=== PATIENT | female | born 1960 | race Caucasian/White ===

== ENCOUNTER 2024-06-04 12:54 | Inpatient (IN) | payer MEDICARE, OTHER ==
[2024-06-04] VITALS (9 sets, daily range): BP systolic 106–161; BP diastolic 70–99
[~2024-06-04] VITALS: Ht 170.2 cm; Wt 64.0 kg
[~2024-06-04 12:54] MED LIST: COLCHICINE0.6 M1 PO; DEPAKOTE250 MG PO; DISULFIRAM250 MG PO; LEVOTHYROXINE75 MC1 PO; MAGNESIUM OXID400 M1 PO; NEURONTIN300 MG PO; NORVASC5 MG PO; PAIN RELIEF650 MG PO; PROTONIX40 M1 PO; SPIRONOLACTONE25 MG PO; TRAZODONE HCL50 MG PO; TRIAMCINOLONE A15 G1 TOP
--- OUTSIDE RECORDS SUMMARY | 2024-06-04 12:55 | XMS ---
PreManage Notification: YAMILETH ENAMORADO Security Ship'S Officer Events No recent Security Events currently on file CRITERIA MET - [facility] - [facility] - 2 Visits in 30 Days CARE PROVIDERS HUSSEIN MERLOS Internal Medicine Current PHONE: Unknown Vikki has no Care Guidelines for this patient. EJesse VISIT COUNT (12 MO.) 4 [facility] [address] [place] [address] TOTAL 6 NOTE: Visits indicate total known visits. ED/UCC VISIT TRACKING (12 MO.) 06/04/2024 12:[address] [facility] TYPE: Emergency COMPLAINT: - ALTERED LOC 05/31/2024 21:21 [facility] [place] TYPE: Emergency COMPLAINT: - CONFUSION DIAGNOSES: - Allergy status to other drugs, medicaments and biological substances - Elevated blood-pressure reading, without diagnosis of hypertension - Essential (primary) hypertension - Hormone replacement therapy - Hypertensive urgency - Other lobsterman (current) drug therapy 05/15/2024 02:38 [place] ([facility]) TYPE: Emergency DIAGNOSES: - Candidiasis, unspecified - Pain in right shoulder - Arm Pain - Fall - Shoulder Pain 03/11/2024 16:50 [facility] [place] ([facility]) TYPE: Emergency DIAGNOSES: - Alcohol use, unspecified, uncomplicated - Contusion of right knee, initial encounter - Gross hematuria - Other nondisplaced fracture of first cervical vertebra, initial encounter for closed fracture - Repeated falls - Weakness - Ankle Injury - Pain 12/08/2023 19:23 [facility] [place] ([facility]) TYPE: Emergency DIAGNOSES: - Hypomagnesemia - Unspecified convulsions - Possible Seizure - Seizure 08/31/2023 12:17 [facility] [place] ([facility]) TYPE: Emergency DIAGNOSES: - Gastrointestinal hemorrhage, unspecified - Generalized Weakness; Vomitting - Weakness INPATIENT VISIT TRACKING (12 MO.) 03/11/2024 16:50 [facility] [place] ([facility]) TYPE: Internal Medicine DIAGNOSES: - Adult failure to thrive - Alcohol abuse, uncomplicated - Alcohol dependence, uncomplicated - Alcohol use, unspecified, uncomplicated - Contusion of right knee, initial encounter - Gross hematuria - Other nondisplaced fracture of first cervical vertebra, initial encounter for closed fracture - Repeated falls - Weakness - Wedge compression fracture of second lumbar vertebra, subsequent encounter for fracture with routine healing 08/31/2023 12:17 [facility] [place] ([facility]) TYPE: Internal Medicine DIAGNOSES: - Acute kidney failure, unspecified - Gastrointestinal hemorrhage, unspecified - Repeated falls [email or web address]
[2024-06-04 13:43] LABS: BASOPHILS 0.9 % (0-2); EOSINOPHILS 2.6 % (0-6); HEMATOCRIT 40.4 % (35.0-50.0); HEMOGLOBIN 13.6 g/dL (12.0-18.0); LYMPHOCYTES 38.5 % (24-44); MCHC 33.7 g/dl (30-36); MCV 91.9 fl (81-99); MONOCYTES 14.3 % (0-12); NEUTROPHILS 43.7 % (39-80); PLATELET COUNT 152 K/uL (140-440); RBC 4.39 M/ul (4.3-5.7); RDW 15.1 (10.5-15.0)
[2024-06-04 13:59] LABS: ALBUMIN 3.1 g/dL (3.4-5.0); ALBUMIN/GLOBULIN RATIO 0.72 (1.1-2.4); ALKALINE PHOSPHATASE 116 U/L (46-116); ALT (SGPT) 11 U/L (14-59); ANION GAP 13.1 (7-21); AST (SGOT) 19 U/L (15-37); BILIRUBIN, TOTAL 0.3 ng/dL (0.2-1.0); CALCIUM 10.5 mg/dL (8.5-10.1); CARBON DIOXIDE 30 mmol/L (21-32); CHLORIDE 101 mmol/L (98-107); GLOMERULAR FILTRATION RATE,EST 38 mL/min (>60); POTASSIUM 4.1 mmol/L (3.5-5.1); PROTEIN, TOTAL 7.4 g/dL (6.4-8.2); UREA NITROGEN 30 mg/dL (7-18); VALPROIC ACID 142 ug/mL (50-100)
[2024-06-04] MEDS ORDERED: SODIUM CHLORIDE 0.9% 500 ML IV PRN (14:45)
[2024-06-04] MEDS ORDERED: ondansetron HCL 4 MG/2 ML VIAL IV PRN (15:45)
[2024-06-04] MEDS ORDERED: SODIUM CHLORIDE 0.9% 1,000 ML IV SCH (15:45)
[2024-06-04] MEDS ORDERED: ALLOPURINOL100 MG PO (16:24)
[2024-06-04] MEDS ORDERED: ALLOPURINOL300 MG PO (17:36)
[2024-06-04] MEDS ORDERED: MELATONIN 3 MG TAB PO PRN (21:00)
[2024-06-05] VITALS (15 sets, daily range): BP systolic 137–179; BP diastolic 68–103
[2024-06-05 05:41] LABS: EOSINOPHILS 2.6 % (0-6); HEMATOCRIT 33.7 % (35.0-50.0); HEMOGLOBIN 11.3 g/dL (12.0-18.0); LYMPHOCYTES 40.8 % (24-44); MCH 31.1 (27-36); MCHC 33.6 g/dl (30-36); MCV 92.5 fl (81-99); MONOCYTES 14.4 % (0-12); NEUTROPHILS 41.2 % (39-80); PLATELET COUNT 114 K/uL (140-440); RBC 3.65 M/ul (4.3-5.7)
[2024-06-05 06:03] LABS: ALBUMIN 2.4 g/dL (3.4-5.0); ALBUMIN/GLOBULIN RATIO 0.75 (1.1-2.4); ANION GAP 12.7 (7-21); BILIRUBIN, TOTAL 0.4 ng/dL (0.2-1.0); BUN/CREATININE RATIO 22.22 (6.0-28.6); CALCIUM 9.5 mg/dL (8.5-10.1); CREATININE, SERUM 1.26 mg/dL (0.55-1.02); MAGNESIUM 2.1 mg/dL (1.8-2.4); PHOSPHORUS, INORGANIC 3.9 mg/dL (2.5-4.9); POTASSIUM 3.7 mmol/L (3.5-5.1); PROTEIN, TOTAL 5.6 g/dL (6.4-8.2)
[2024-06-05 06:04] LABS: VALPROIC ACID 79 ug/mL (50-100)
[2024-06-05] MEDS ORDERED: ENOXAPARIN SODIUM 40 MG/0.4 ML SYR SUB-Q SCH (09:00)
[2024-06-05] MEDS ORDERED: PANTOPRAZOLE SODIUM 40 MG TABEC PO SCH (09:00)
[2024-06-05] MEDS ORDERED: PHARMACY RENAL DOSE ADJUSTMENT 1 DOSE MISC PO SCH (12:00)
[2024-06-06] VITALS (7 sets, daily range): BP systolic 167–178; BP diastolic 82–95
[2024-06-06] MEDS ORDERED: ACETAMINOPHEN 500 MG TAB PO PRN (02:30)
[2024-06-06 07:07] LABS: HEMOGLOBIN 11.3 g/dL (12.0-18.0); MCHC 33.9 g/dl (30-36); RDW 15.2 (10.5-15.0)
[2024-06-06 07:10] LABS: BASOPHILS 0.8 % (0-2); EOSINOPHILS 2.4 % (0-6); HEMATOCRIT 33.3 % (35.0-50.0); LYMPHOCYTES 38.3 % (24-44); MCH 31.2 (27-36); MONOCYTES 17.7 % (0-12); NEUTROPHILS 40.8 % (39-80); PLATELET COUNT 113 K/uL (140-440); RBC 3.62 M/ul (4.3-5.7)
[2024-06-06 07:21] LABS: ALBUMIN 2.5 g/dL (3.4-5.0); ALBUMIN/GLOBULIN RATIO 0.78 (1.1-2.4); ALKALINE PHOSPHATASE 93 U/L (46-116); ALT (SGPT) 10 U/L (14-59); ANION GAP 10.1 (7-21); AST (SGOT) 15 U/L (15-37); BILIRUBIN, TOTAL 0.4 ng/dL (0.2-1.0); BUN/CREATININE RATIO 15.38 (6.0-28.6); CALCIUM 9.2 mg/dL (8.5-10.1); CARBON DIOXIDE 27 mmol/L (21-32); CHLORIDE 103 mmol/L (98-107); CREATININE, SERUM 1.04 mg/dL (0.55-1.02); GLOMERULAR FILTRATION RATE,EST 59 mL/min (>60); POTASSIUM 3.1 mmol/L (3.5-5.1); PROTEIN, TOTAL 5.7 g/dL (6.4-8.2); UREA NITROGEN 16 mg/dL (7-18); VALPROIC ACID 41 ug/mL (50-100)
[2024-06-06] MEDS ORDERED: POTASSIUM CHLORIDE 10 MEQ TABCR PO ONE (07:45)
== END 2024-06-06 15:07 | disposition home or self-care (01) | DRG 918 ==
LOC: ED 12:54 → MS 15:49 → CCU 15:49 → MS 06-05 07:52
PROVIDERS: Emergency Medicine; Internal Medicine; ADMIT Family Medicine; ATTEND Family Medicine
DX: T42.6X1A Poisoning by other antiepileptic and sedative-hypnotic drugs, accidental (unintentional), initial encounter (principal); N17.9 Acute kidney failure, unspecified; G93.49 Other encephalopathy; N18.9 Chronic kidney disease, unspecified; M10.9 Gout, unspecified; I12.9 Hypertensive chronic kidney disease with stage 1 through stage 4 chronic kidney disease, or unspecified chronic kidney disease; G47.00 Insomnia, unspecified; R56.9 Unspecified convulsions; Z87.11 Personal history of peptic ulcer disease; Z98.890 Other specified postprocedural states; Z88.8 Allergy status to other drugs, medicaments and biological substances; Z79.899 Other long term (current) drug therapy; Z79.890 Hormone replacement therapy
CPT/HCPCS: 36415; 70450; 80053; 80164; 82140; 83735; 84100; 85025; 97162; 97166; A9270; J1650; J7030; J7040

== ENCOUNTER 2024-06-14 11:31 | Emergency (ER) | payer MEDICARE, OTHER ==
[~2024-06-14] VITALS: Ht 170.2 cm; Wt 63.1 kg
[~2024-06-14 11:31] MED LIST changes: +ALLOPURINOL100 MG PO; +ALLOPURINOL300 MG PO; +HYDROCODON-ACE1 EA10 PO; +PANTOPRAZOLE SO40 M2 PO
--- OUTSIDE RECORDS SUMMARY | 2024-06-14 11:32 | XMS ---
PreManage Notification: YAMILETH ENAMORADO Security Client Service Manager Events No recent Security Events currently on file CRITERIA MET - 6 ED Visits in 6 Months - [facility] - 2 Visits in 30 Days CARE PROVIDERS HUSSEIN MERLOS Internal Medicine Current PHONE: Unknown Vikki has no Care Guidelines for this patient. Shilpa VISIT COUNT (12 MO.) 4 [place] [address] Solomon Pate ([facility]) TOTAL 8 NOTE: Visits indicate total known visits. ED/UCC VISIT TRACKING (12 MO.) 06/14/2024 11:31 [facility] [place] TYPE: Emergency COMPLAINT: - SEIZURE 06/10/2024 17:20 [facility] [place] TYPE: Emergency COMPLAINT: - FALL DIAGNOSES: - Allergy status to other drugs, medicaments and biological substances - Chronic kidney disease, unspecified - Encounter for examination and observation following other accident - Fall on same level, unspecified, initial encounter - Hormone replacement therapy - Hypertensive chronic kidney disease with stage 1 through stage 4 chronic kidney disease, or unspecified chronic kidney disease - Other cervical disc degeneration, unspecified cervical region - Other fracture of T11-T12 vertebra, initial encounter for closed fracture - Other fracture of T5-T6 vertebra, initial encounter for closed fracture - Other fracture of T7-T8 thoracic vertebra, initial encounter for closed fracture - Other intervertebral disc degeneration, thoracic region - Other custodial (current) drug therapy - Spinal stenosis, cervical region - Spondylosis without myelopathy or radiculopathy, thoracic region 06/04/2024 12:55 [facility] [place] TYPE: Emergency COMPLAINT: - ALTERED LOC 05/31/2024 21:21 [facility] [place] TYPE: Emergency COMPLAINT: - CONFUSION DIAGNOSES: - Allergy status to other drugs, medicaments and biological substances - Elevated blood-pressure reading, without diagnosis of hypertension - Essential (primary) hypertension - Hormone replacement therapy - Hypertensive urgency - Other custodial (current) drug therapy 05/15/2024 02:38 Solomon [facility] [place] ([facility]) TYPE: Emergency DIAGNOSES: - Candidiasis, unspecified - Pain in right shoulder - Arm Pain - Fall - Shoulder Pain 03/11/2024 16:50 Solomon [facility] [place] ([facility]) TYPE: Emergency DIAGNOSES: - Alcohol use, unspecified, uncomplicated - Contusion of right knee, initial encounter - Gross hematuria - Other nondisplaced fracture of first cervical vertebra, initial encounter for closed fracture - Repeated falls - Weakness - Ankle Injury - Pain 12/08/2023 19:23 Solomon [facility] [place] ([facility]) TYPE: Emergency DIAGNOSES: - Hypomagnesemia - Unspecified convulsions - Possible Seizure - Seizure 08/31/2023 12:17 Solomon [facility] [place] ([facility]) TYPE: Emergency DIAGNOSES: - Gastrointestinal hemorrhage, unspecified - Generalized Weakness; Vomitting - Weakness INPATIENT VISIT TRACKING (12 MO.) 06/04/2024 15:49 [facility] [place] TYPE: Medical Surgical COMPLAINT: - VALPORIC ACID TOXICITY DIAGNOSES: - Acute kidney failure, unspecified - Acute kidney failure, unspecified - Allergy status to other drugs, medicaments and biological substances - Allergy status to other drugs, medicaments and biological substances - Chronic kidney disease, unspecified - Chronic kidney disease, unspecified - Gout, unspecified - Gout, unspecified - Hormone replacement therapy - Hormone replacement therapy - Hypertensive chronic kidney disease with stage 1 through stage 4 chronic kidney disease, or unspecified chronic kidney disease - Hypertensive chronic kidney disease with stage 1 through stage 4 chronic kidney disease, or unspecified chronic kidney disease - Insomnia, unspecified - Insomnia, unspecified - Other encephalopathy - Other encephalopathy - Other termite control representative (current) drug therapy - Other custodial (current) drug therapy - Other specified postprocedural states - Other specified postprocedural states - Personal history of peptic ulcer disease - Personal history of peptic ulcer disease - Poisoning by other antiepileptic and sedative-hypnotic drugs, accidental (unintentional), initial encounter - Unspecified convulsions - Unspecified convulsions 03/11/2024 16:50 Solomon [facility]) TYPE: Internal Medicine DIAGNOSES: - Adult failure [...] routine healing 08/31/2023 12:17 Solomon [facility] [place] ([facility]) TYPE: Internal Medicine DIAGNOSES: - Acute kidney failure, unspecified - Gastrointestinal hemorrhage, unspecified - Repeated falls [email or web address]
[2024-06-14] MEDS ORDERED: HYDROCODONE/ACETA 5/325 TAB PO ONE (12:30)
[2024-06-14 12:45] LABS: BASOPHILS 0.4 % (0-2); EOSINOPHILS 1.6 % (0-6); HEMATOCRIT 44.9 % (35.0-50.0); HEMOGLOBIN 15.2 g/dL (12.0-18.0); LYMPHOCYTES 24.5 % (24-44); MCH 31.4 (27-36); MCHC 33.8 g/dl (30-36); NEUTROPHILS 58.5 % (39-80); PLATELET COUNT 142 K/uL (140-440); RBC 4.83 M/ul (4.3-5.7); RDW 15.6 (10.5-15.0)
[2024-06-14 13:03] LABS: ALBUMIN 3.5 g/dL (3.4-5.0); ALBUMIN/GLOBULIN RATIO 0.85 (1.1-2.4); ALCOHOL, MEDICAL <3 ng/dL (<3); ALKALINE PHOSPHATASE 129 U/L (46-116); ALT (SGPT) 21 U/L (14-59); ANION GAP 12.8 (7-21); AST (SGOT) 20 U/L (15-37); BILIRUBIN, TOTAL 0.4 ng/dL (0.2-1.0); BUN/CREATININE RATIO 10.19 (6.0-28.6); CALCIUM 11.2 mg/dL (8.5-10.1); CARBON DIOXIDE 31 mmol/L (21-32); CHLORIDE 99 mmol/L (98-107); CREATININE, SERUM 1.57 mg/dL (0.55-1.02); GLOMERULAR FILTRATION RATE,EST 36 mL/min (>60); POTASSIUM 3.8 mmol/L (3.5-5.1); PROTEIN, TOTAL 7.6 g/dL (6.4-8.2); UREA NITROGEN 16 mg/dL (7-18)
[2024-06-14 13:32] LABS: VALPROIC ACID 123 ug/mL (50-100)
[2024-06-14 15:10] LABS: BILIRUBIN, URINE NEGATIVE (negative); BLOOD/HGB, URINE LARGE (Negative); KETONE, URINE TRACE (Negative); LEUK ESTERASE, URINE SMALL (negative); NITRITE, URINE NEGATIVE (negative); PH, URINE 6.5 (5-7)
[2024-06-14 15:17] LABS: EPITHELIAL CELLS, URINE SQUAMOUS 1+ /lpf (0-1+); RED BLOOD CELLS, URINE 41-50 /hpf (0-5); WHITE BLOOD CELLS, URINE 21-40 /HPF (0-5)
[2024-06-14 15:18] LABS: BACTERIA, URINE 1+ /hpf (negative); CASTS, URINE NONE SEEN \\lpf; COLLECTION TYPE, URINE CLEAN CATCH; CRYSTALS, URINE NONE SEEN (0-1+); REFLEX CULTURE, URINE Yes (No)
[2024-06-14 15:58] LABS: AMPHETAMINES, URINE NEGATIVE (NEGATIVE); BARBITURATES, URINE NEGATIVE (NEGATIVE); BENZODIAZEPINE, URINE NEGATIVE (NEGATIVE); BUPRENORPHINE, URINE NEGATIVE (NEGATIVE); CANNABINOID, URINE NEGATIVE (NEGATIVE); COCAINE, URINE NEGATIVE (NEGATIVE); ECSTASY, URINE NEGATIVE (NEGATIVE); FENTANYL, URINE NEGATIVE (NEGATIVE); METHADONE, URINE NEGATIVE (NEGATIVE); OPIATES, URINE POSITIVE (NEGATIVE); OXYCODONE, URINE NEGATIVE (NEGATIVE); PHENCYCLIDINE, URINE NEGATIVE (NEGATIVE)
[2024-06-14] MEDS ORDERED: CEPHALEXIN500 MG PO (16:40)
[2024-06-14] MEDS ORDERED: CEFTRIAXONE/SODIUM CHLORIDE 1 GM/100 ML PIGGYBACK IV ONE (16:45)
[2024-06-14 17:35] VITALS: BP 114/97
== END 2024-06-14 17:35 | disposition home or self-care (01) ==
LOC: ED 11:31
PROVIDERS: Emergency Medicine
DX: I71.21 Aneurysm of the ascending aorta, without rupture (principal); G40.909 Epilepsy, unspecified, not intractable, without status epilepticus; N39.0 Urinary tract infection, site not specified; I12.9 Hypertensive chronic kidney disease with stage 1 through stage 4 chronic kidney disease, or unspecified chronic kidney disease; N18.9 Chronic kidney disease, unspecified; Z88.6 Allergy status to analgesic agent; Z79.899 Other long term (current) drug therapy; Z79.890 Hormone replacement therapy
CPT/HCPCS: 36415; 70450; 71250; 72125; 74176; 80053; 80164; 80307; 81001; 85025; 87088; 96374; 99284-25; G0480; J0696

== ENCOUNTER 2024-06-25 13:37 | Emergency (ER) | payer MEDICARE, OTHER ==
[~2024-06-25] VITALS: Ht 170.2 cm; Wt 60.0 kg
[~2024-06-25 13:37] MED LIST changes: +CEPHALEXIN500 MG PO
--- OUTSIDE RECORDS SUMMARY | 2024-06-25 13:45 | XMS ---
PreManage Notification: YAMILETH ENAMORADO Security Child & Adolescent Psychiatrist Events No recent Security Events currently on file CRITERIA MET - 6 ED Visits in 6 Months - - 2 Visits in 30 Days CARE PROVIDERS HUSSEIN MERLOS Internal Medicine Current PHONE: Unknown Vikki has no Care Guidelines for this patient. EJesse VISIT COUNT (12 MO.) 5 [place] [address] Solomon Pate ([facility] ) TOTAL 9 NOTE: Visits indicate total known visits. ED/UCC VISIT TRACKING (12 MO.) 06/25/2024 13:38 [facility] [place] TYPE: Emergency COMPLAINT: - SEIZURE 06/14/2024 11:31 [facility] [place] TYPE: Emergency COMPLAINT: - SEIZURE DIAGNOSES: - Allergy status to analgesic agent - Aneurysm of the ascending aorta, without rupture - Chronic kidney disease, unspecified - Epilepsy, unspecified, not intractable, without status epilepticus - Hormone replacement therapy - Hypertensive chronic kidney disease with stage 1 through stage 4 chronic kidney disease, or unspecified chronic kidney disease - Other emt intermediate (current) drug therapy - Unspecified convulsions - Urinary tract infection, site not specified 06/10/2024 17:20 [facility] [place] TYPE: Emergency [...] intervertebral disc degeneration, thoracic region - Other emt intermediate (current) drug therapy - Spinal stenosis, cervical [...] replacement therapy - Hypertensive urgency - Other emt intermediate (current) drug therapy 05/15/2024 02:38 Solomon Rontahir MaeveAmarilis [facility] [place] ([facility]) TYPE: Emergency DIAGNOSES: - Candidiasis, unspecified - Pain in right shoulder - Arm Pain - Fall - Shoulder Pain 03/11/2024 16:50 Solomon Rontahir MaeveAmarilis [facility] [place] ([facility]) TYPE: Emergency DIAGNOSES: - Alcohol use, unspecified, uncomplicated - Contusion of right knee, initial encounter - Gross hematuria - Other nondisplaced fracture of first cervical vertebra, initial encounter for closed fracture - Repeated falls - Weakness - Ankle Injury - Pain 12/08/2023 19:23 Solomon Holland MaeveAmarilis [facility] [place] ([facility]) TYPE: Emergency DIAGNOSES: - Hypomagnesemia - Unspecified convulsions - Possible Seizure - Seizure 08/31/2023 12:17 Solomon [place] MaeveAmarilis [facility]UI [place] ([facility]) TYPE: Emergency DIAGNOSES: - Gastrointestinal hemorrhage, unspecified - Generalized Weakness; Vomitting - Weakness INPATIENT VISIT TRACKING (12 MO.) 06/04/2024 15:49 [facility] [place] TYPE: Medical Surgical COMPLAINT: - VALPORIC ACID [...] Other encephalopathy - Other encephalopathy - Other group home (current) drug therapy - Other emt intermediate (current) drug therapy - Other specified postprocedural states - Other specified postprocedural states - Personal history of peptic ulcer disease - Personal history of peptic ulcer disease - Poisoning by other antiepileptic and sedative-hypnotic drugs, accidental (unintentional), initial encounter - Unspecified convulsions - Unspecified convulsions 03/11/2024 16:50 Solomon [facility]UI [place] ([facility] ) TYPE: Internal Medicine DIAGNOSES: - Adult failure [...] fracture with routine healing 08/31/2023 12:17 Solomon WARD ([facility] ) TYPE: Internal Medicine DIAGNOSES: - Acute kidney failure, unspecified - Gastrointestinal hemorrhage, unspecified - Repeated falls [email or web address]
[2024-06-25 15:57] VITALS: BP 127/87
== END 2024-06-25 15:57 ==
LOC: ED 13:37
DX: F03.90 Unspecified dementia, unspecified severity, without behavioral disturbance, psychotic disturbance, mood disturbance, and anxiety (principal); I12.9 Hypertensive chronic kidney disease with stage 1 through stage 4 chronic kidney disease, or unspecified chronic kidney disease; N18.9 Chronic kidney disease, unspecified; G47.00 Insomnia, unspecified; Z79.899 Other long term (current) drug therapy; Z88.6 Allergy status to analgesic agent
CPT/HCPCS: 80053; 84484; 85025; 99284

== ENCOUNTER 2024-06-26 12:44 | Emergency (ER) | payer MEDICARE, OTHER ==
[~2024-06-26] VITALS: Ht 170.2 cm; Wt 65.0 kg
--- OUTSIDE RECORDS SUMMARY | 2024-06-26 12:51 | XMS ---
PreManage Notification: YAMILETH ENAMORADO Security Liability Claims Representative Events No recent Security Events currently on file CRITERIA MET - 6 ED Visits in 6 Months - [facility] [place] - 2 Visits in 30 Days CARE PROVIDERS HUSSEIN MERLOS Internal Medicine Current PHONE: Unknown Vikki has no Care Guidelines for this patient. EJesse VISIT COUNT (12 MO.) 6 [place] [address] Solomon Pate ([facility] ) TOTAL 10 NOTE: Visits indicate total known visits. ED/UCC VISIT TRACKING (12 MO.) 06/26/2024 12:45 [facility] [place] TYPE: Emergency COMPLAINT: - WEAKNESS 06/25/2024 13:38 [facility] [place] TYPE: Emergency [...] or unspecified chronic kidney disease - Other remote computer terminal operator (current) drug therapy - Unspecified convulsions - [...] intervertebral disc degeneration, thoracic region - Other jail (current) drug therapy - Spinal stenosis, cervical [...] replacement therapy - Hypertensive urgency - Other jail (current) drug therapy 05/15/2024 02:38 Solomon [facility] ([facility]) TYPE: Emergency DIAGNOSES: - Candidiasis, unspecified - Pain in right shoulder - Arm Pain - Fall - Shoulder Pain 03/11/2024 16:50 Solomon [facility] [place] ([facility]) TYPE: Emergency DIAGNOSES: - Alcohol use, unspecified, uncomplicated - Contusion of right knee, initial encounter - Gross hematuria - Other nondisplaced fracture of first cervical vertebra, initial encounter for closed fracture - Repeated falls - Weakness - Ankle Injury - Pain 12/08/2023 19:23 Solomon [facility] [place] ([facility]) TYPE: Emergency DIAGNOSES: - Hypomagnesemia - Unspecified convulsions - Possible Seizure - Seizure 08/31/2023 12:17 Solomon [facility] [place] ([facility]) TYPE: Emergency DIAGNOSES: - Gastrointestinal hemorrhage, unspecified [...] Other encephalopathy - Other encephalopathy - Other remote computer terminal operator (current) drug therapy - Other remote computer terminal operator (current) drug therapy - Other specified postprocedural states - Other specified postprocedural states - Personal history of peptic ulcer disease - Personal history of peptic ulcer disease - Poisoning by other antiepileptic and sedative-hypnotic drugs, accidental (unintentional), initial encounter - Unspecified convulsions - Unspecified convulsions 03/11/2024 16:50 Solomon WARD ([facility]) TYPE: Internal Medicine DIAGNOSES: - Adult failure [...] with routine healing 08/31/2023 12:17 Solomon WARD ([facility]) TYPE: Internal Medicine DIAGNOSES: - Acute kidney failure, unspecified - Gastrointestinal hemorrhage, unspecified - Repeated falls [email or web address]
[2024-06-26 13:22] LABS: EOSINOPHILS 1.4 % (0-6); HEMATOCRIT 44.2 % (35.0-50.0); HEMOGLOBIN 14.7 g/dL (12.0-18.0); LYMPHOCYTES 41.7 % (24-44); MCH 30.9 (27-36); MCHC 33.3 g/dl (30-36); MONOCYTES 19.4 % (0-12); NEUTROPHILS 36.5 % (39-80); PLATELET COUNT 98 K/uL (140-440); RBC 4.75 M/ul (4.3-5.7); RDW 16.1 (10.5-15.0)
[2024-06-26 13:35] LABS: ALBUMIN/GLOBULIN RATIO 0.79 (1.1-2.4); ANION GAP 14.9 (7-21); BILIRUBIN, TOTAL 0.6 ng/dL (0.2-1.0); BUN/CREATININE RATIO 21.76 (6.0-28.6); CALCIUM 10.3 mg/dL (8.5-10.1); CREATININE, SERUM 1.93 mg/dL (0.55-1.02); POTASSIUM 3.9 mmol/L (3.5-5.1); PROTEIN, TOTAL 6.8 g/dL (6.4-8.2)
[2024-06-26 13:40] LABS: VALPROIC ACID 69 ug/mL (50-100)
[2024-06-26] MEDS ORDERED: SODIUM CHLORIDE 0.9% 1,000 ML IV PRN (13:45)
[2024-06-26] MEDS ORDERED: SODIUM CHLORIDE 0.9% 1,000 ML IV ONE (15:15)
[2024-06-26 16:03] LABS: BILIRUBIN, URINE POSITIVE (negative); BLOOD/HGB, URINE LARGE (Negative); KETONE, URINE SMALL (Negative); LEUK ESTERASE, URINE NEGATIVE (negative); NITRITE, URINE NEGATIVE (negative); PH, URINE 6.5 (5-7)
[2024-06-26 16:10] LABS: CRYSTALS, URINE NONE SEEN (0-1+); EPITHELIAL CELLS, URINE 0 /lpf (0-1+)
[2024-06-26 16:11] LABS: BACTERIA, URINE RARE /hpf (negative); CASTS, URINE HYALINE 1+ \\lpf; COLLECTION TYPE, URINE CLEAN CATCH; REFLEX CULTURE, URINE No (No)
[2024-06-26 17:30] VITALS: BP 91/63
== END 2024-06-26 17:20 | disposition home or self-care (01) ==
LOC: ED 12:44
PROVIDERS: Emergency Medicine
DX: R53.1 Weakness (principal); I12.9 Hypertensive chronic kidney disease with stage 1 through stage 4 chronic kidney disease, or unspecified chronic kidney disease; N18.9 Chronic kidney disease, unspecified; G47.00 Insomnia, unspecified; Z79.899 Other long term (current) drug therapy; Z88.6 Allergy status to analgesic agent
CPT/HCPCS: 36415; 70450; 80053; 80164; 81001; 85025; 96360; 99285-25; J7030